=== PATIENT | female | born 1975 | race Caucasian/White ===

== ENCOUNTER 2023-02-22 12:28 | Emergency (ER) | payer BC, SELFPAY ==
--- NOTE | ~2023-02-22 | XR_ITS ---
EXAM: XR knee RT 3V DATE: 02/22/2023 15:11 HISTORY: posterior knee pain; limited range of motion . COMPARISON: None available. FINDINGS: Normal mineralization. No fracture or dislocation. No lytic or blastic lesion. Moderate tr icompartmental osteoarthritis. Small knee joint effusion. No erosion or periosteal change. Soft tissu es within normal limits. IMPRESSION: No acute osseous finding in the right knee. Reviewed, dictated and finalized at location K.
[2023-02-22 12:35] VITALS: BP 183/98; PULSE 82; RESP 14; TEMP 36.6; O2SAT 99
[2023-02-22 14:49] VITALS: BP 179/98; PULSE 85; RESP 18; O2SAT 99
--- NOTE | 2023-02-22 14:51 | PC.NURSE ---
Pt taken to room 18 to be evaluated by PRODUCER
--- NOTE | 2023-02-22 14:58 | ED.LOWEXIN ---
HPI - Extremity Injury (Lower) General Chief Complaint: Extremity Injury, Lower Stated Complaint: R knee pain Time Seen by Provider: 02/22/23 14:50 Source: patient Mode of arrival: ambulatory Limitations: no limitations History of Present Illness HPI Narrative: Mrs. Khalil is a 47 year old female patient presenting to the ER with c/o right knee pain that started yesterday. She reports no known injury. Has pain to the right knee that is worse when straightening and bearing weight. Denies any posterior knee pain but states most pain is in the front of her knee. Does have some swelling noted to the right foot without redness, swelling or posterior calf tenderness. Rates knee pain 12/07. Related Data Allergies Allergy/AdvReac Type Severity Reaction Status Date / Time No Known Allergies Allergy Verified 07/21/21 16:13 Review of Systems Review of Systems: All systems reviewed & are unremarkable except as noted in HPI and below PMFSH Past Medical History Medical History Calculus of gallbladder with chronic cholecystitis without obstruction Endometrial hyperplasia Papillomavirus as the cause of diseases classified elsewhere Surgical History Surgical History Hx of tonsillectomy Family History Family History Mother Diabetes mellitus Hypertension Family history of hypothyroidism Grandparent Diabetes mellitus Hypertension Family history of cardiovascular disease Family history of malignant neoplasm Family history of kidney disease Family history of chronic obstructive pulmonary disease Carcinoma of colon Family history of Alzheimer's disease Family history of coronary artery disease Father Family history of elevated blood lipids Social History Social History Alcohol intake: never Comments At the time of my signature, I reviewed and agree with the nursing past medical, surgical, social, and family history. There is no relevant family history pertinent to the patient complaint. Exam Const: General: healthy appearing, no acute distress and alert HENMT: Head: normal to inspection Chest: Chest palpation & inspection: normal inspection of the chest Resp: Effort & Inspection: normal respiratory effort Other: LS clear, non labored Cardio: Rate: regular rate Rhythm: regular rhythm Other: s1 and s2 normal Extrem: General: edema Other: Anterior right knee pain with palpation, pain bearing weight, and pain with extension greater than 60 degrees, swelling noted to the right foot with pain to palpation. No crepitus, valgus and varus testing negative, pain with anterior and posterior drawer testing without laxity Course Course Emergency Course: Portions of this record may have been created with voice recognition software. Vital Signs Vital signs: Vital Signs Temperature 36.6 C 02/22/23 12:35 Pulse Rate 82 02/22/23 12:35 Respiratory Rate 14 02/22/23 12:35 Blood Pressure 183/98 H 02/22/23 12:35 Pulse Oximetry 99 02/22/23 12:35 Oxygen Delivery Room Air 02/22/23 12:35 Temperature 36.6 C 02/22/23 12:35 Pulse Rate 85 02/22/23 14:49 Respiratory Rate 18 02/22/23 14:49 Blood Pressure 179/98 H 02/22/23 14:49 Pulse Oximetry 99 02/22/23 14:49 Oxygen Delivery Room Air 02/22/23 12:35 Vital signs reviewed MDM - Extremity Injury (Lower) MDM Narrative Medical decision making narrative: At the time of visit patient is resting in the exam chair. X-ray of the right knee was performed. Discharge Plan Discharge Clinical Impression: Osteoarthritis Qualifiers: Osteoarthritis location: knee Osteoarthritis type: unspecified Laterality: right Qualified Code(s): M17.11 - Unilateral primary osteoarthritis, right knee Effusion of knee jennifer
== END 2023-02-22 16:05 | disposition home or self-care (01) ==
LOC: ANHED 15:57
PROVIDERS: Emergency Provider Nurse Practitioner Family
DX: M17.11 Unilateral primary osteoarthritis, right knee (principal); M25.461 Effusion, right knee
CPT/HCPCS: 73562; 99283